=== PATIENT | female | born 1965 | race Caucasian/White ===

== ENCOUNTER 2018-09-24 06:11 | Day surgery (SDC) | payer BC ==
[2018-09-24] MEDS ORDERED: MIDAZOLAM 1 MG/ML 2 ML INJ ×2 (08:20)
[2018-09-24] MEDS ORDERED: FENTAnyl 50 MCG/ML VIAL (08:21)
== END 2018-09-24 16:24 | disposition home or self-care (01) ==
LOC: GIL 06:11
DX: K21.0 Gastro-esophageal reflux disease with esophagitis (principal); K29.60 Other gastritis without bleeding
CPT/HCPCS: 43239; 88305; 88312